=== PATIENT | male | born 1995 | race Caucasian/White ===

== ENCOUNTER 2019-06-30 05:22 | Emergency (ER) | payer OTHER ==
[2019-06-30] MEDS ORDERED: METOCLOPRAMIDE 5 MG/ML 2 ML VIAL IVP STA (05:39)
[2019-06-30] MEDS ORDERED: KETOROLAC 30 MG/ML 1 ML VIAL IVP STA (05:39)
[2019-06-30] MEDS ORDERED: SODIUM CHLORIDE 0.9% 1,000 ML IV ONE ×2 (05:39→07:54)
[2019-06-30] MEDS ORDERED: ACETAMINOPHEN TAB 325 MG TAB PO STA (05:45)
[2019-06-30] MEDS ORDERED: diphenhydrAMINE 50 MG/ML 1 ML VIAL IVP STA (05:45)
--- NOTE | 2019-06-30 05:49 | ED ---
Headache HPI - General Mode of arrival: EMS Limitations: no limitations - History of Present Illness Complaint: headache Onset/Timin -: days(s) Onset Description: gradual Location: left, frontal Severity: severe Quality: throbbing Consistency: constant Improves With: nothing Worsens With: light Context: occurred at rest Associated Symptoms: fever, vomiting, photophobia Treatments Prior to Arrival: none <Trevor Linares - Last Filed: 06/30/19 08:04> <Bakari Riojas - Last Filed: 06/30/19 10:44> - General Chief Complaint: Headache Stated Complaint: Headache Time Seen by Provider: 06/30/19 05:38 - History of Present Illness Initial Comments: 's patient is 24-year-old man who presents to be evaluated for headache. The patient states that it has been coming on over proximal past 2-1/2 days. He indicates the left frontal area. He states the pain as a throbbing, approximately 8 out of 10 in severity. He has noticed that it is worse with light. Patient states he also had some associated nausea and vomiting this morning. In addition over the past day or so he has noted having fever and feeling a little weaker than usual. In addition a is getting up this morning the felt unsteady and fell, but denies any injury. Patient denies neck stiffness or pain. Denies neurologic symptoms. (Trevor Linares) - Related Data Home Medications Medication Instructions Recorded Confirmed Venlafaxine HCl [Effexor] 75 mg PO BID 06/30/19 06/30/19 Allergies Allergy/AdvReac Type Severity Reaction Status Date / Time No Known Allergies Allergy Verified 06/30/19 06:48 Review of Systems ROS Other: All systems not noted in ROS Statement are negative. Constitutional: Reports: fever. Denies: chills, weakness Eyes: Reports: eye pain ((). Denies: vision change ENT: Denies: ear pain, throat pain, dental pain, hearing loss, congestion Respiratory: Denies: cough, dyspnea Cardiovascular: Denies: chest pain, palpitations, syncope Gastrointestinal: Reports: nausea, vomiting. Denies: abdominal pain, diarrhea Musculoskeletal: Denies: back pain Skin: Denies: rash Neurological: Reports: as per HPI, headache. Denies: weakness, numbness, paresthesias, confusion <Trevor Linares - Last Filed: 06/30/19 08:04> ROS Other: All systems not noted in ROS Statement are negative. <Bakari Riojas - Last Filed: 06/30/19 10:44> ROS Statement: Those systems with pertinent positive or pertinent negative responses have been documented in the HPI. Past Medical History Additional Past Medical History / Comment(s): depression History of Any Multi-Drug Resistant Organisms: None Reported Past Surgical History: No Surgical Hx Reported Past Psychological History: Depression Smoking Status: Never smoker Past Alcohol Use History: None Reported Past Drug Use History: None Reported <Trevor Linares - Last Filed: 06/30/19 08:04> General Exam Limitations: no limitations General appearance: alert, in no apparent distress Head exam: Present: atraumatic, normocephalic Eye exam: Present: normal appearance, PERRL, EOMI. Absent: scleral icterus, conjunctival injection, nystagmus ENT exam: Present: mucous membranes dry Neck exam: Present: normal inspection, full ROM. Absent: tenderness, meni ngismus Respiratory exam: Present: normal lung sounds bilaterally. Absent: respiratory distress, wheezes, rales, rhonchi, stridor Cardiovascular Exam: Present: regular rate, normal rhythm, normal heart sounds GI/Abdominal exam: Present: soft. Absent: tenderness Neurological exam: Present: alert, oriented X3, CN II-XII intact. Absent: motor sensory deficit Skin exam: Present: warm, dry, intact, normal color. Absent: rash <Trevor Linares - Last Filed: 06/30/19 08:04> Course Vital Signs 06/30/19 06/30/19 06/30/19 05:24 07:07 08:07 Temperature 100.9 F H 98.7 F Pulse Rate 90 86 73 Respiratory 18 16 16 Rate Blood Pressure 122/75 110/56 98/60 O2 Sat by Pulse 97 96 96 Oximetry 06/30/19 06/30/19 09:34 10:27 Temperature Pulse Rate 84 88 Respiratory 16 16 Rate Blood Pressure 107/60 125/68 O2 Sat by Pulse 96 99 Oximetry Procedures - Lumbar Puncture Consent Obtained: written consent Indication for Procedure: headache, fever work up Patient Position: sitting upright/leaning forward Skin Prep: 0.5% Chlorhexidine/Alcohol Local Anesthetic Used: Lidocaine 1% Spinal Needle Gauge: 20G Interspace Used: L3-L4 Fluid Initially Obtained: clear Complications: none Patient Tolerated Procedure: well <MilagrosTrevor - Last Filed: 06/30/19 08:04> Medical Decision Making - Lab Data Result diagrams: 06/30/19 05:29 06/30/19 05:29 <Trevor Linares - Last Filed: 06/30/19 08:04> - Lab Data Result diagrams: 06/30/19 05:29 06/30/19 05:29 <Bakari Riojas - Last Filed: 06/30/19 10:44> - Medical Decision Making History of signout to me by previous shift physician Dr. Mata. Briefly, patient is 24-year-old male presents with headache for multiple days. Patient also had a low-grade temperature on initial triage vitals. Lumbar puncture was performed by previous shift physician. Plan at sign out was to follow-up with lumbar puncture results. CSF studies were completed. CSF is otherwise normal except for 21 CSF nucleated cells. Patient is reevaluated at bedside from been stable medical condition. Discussed patient case with Dr. Mejias of neurology who doesn't recommend any intervention at this time. He does recommend that patient follow-up with primary care physician for results of CSF culture. Patient is well-appearing his mental for discharge. Symptoms are improved at time of discharge. (Bakari Riojas) - Lab Data Lab Results 06/30/19 06/30/19 06/30/19 Range/Units 05:29 05:29 07:42 WBC 11.9 H (3.8-10.6) k/uL RBC 5.36 (4.30-5.90) m/uL Hgb 15.8 (13.0-17.5) gm/dL Hct 45.6 (39.0-53.0) % MCV 85.1 (80.0-100.0) fL MCH 29.4 (25.0-35.0) pg MCHC 34.5 (31.0-37.0) g/dL RDW 15.3 (11.5-15.5) % Plt Count 195 (150-450) k/uL Neutrophils % 75 % Lymphocytes % 18 % Monocytes % 5 % Eosinophils % 1 % Basophils % 1 % Neutrophils # 8.9 H (1.3-7.7) k/uL Lymphocytes # 2.1 (1.0-4.8) k/uL Monocytes # 0.6 (0-1.0) k/uL Eosinophils # 0.1 (0-0.7) k/uL Basophils # 0.1 (0-0.2) k/uL Sodium 137 (137-145) mmol/L Potassium 4.2 (3.5-5.1) mmol/L Chloride 105 (98-107) mmol/L Carbon Dioxide 22 (22-30) mmol/L Anion Gap 10 mmol/L BUN 15 (9-20) mg/dL Creatinine 0.97 (0.66-1.25) mg/dL Est GFR (CKD-EPI)AfAm >90 (>60 ml/min/1.73 sqM) Est GFR (CKD-EPI)NonAf >90 (>60 ml/min/1.73 sqM) Glucose 98 (74-99) mg/dL Calcium 9.2 (8.4-10.2) mg/dL C-Reactive Protein 8.7 (<10.0) mg/L CSF Tube Number 2 CSF Volume 2.0 CSF Appearance Clear CSF Color Colorless CSF RBC 1 (0-10) u/L CSF Tot Nucleated Cells 21 H* (0-5) u/L CSF Mononuclear WBCs % 37 % CSF Polynuclear WBCs % 63 % CSF Glucose 53 (40-70) mg/dL CSF Total Protein 34 (12-60) mg/dL Disposition <Trevor Linares - Last Filed: 06/30/19 08:04> Is patient prescribed a controlled substance at d/c from ED?: No Time of Disposition: 10:44 <Bakari Riojas - Last Filed: 06/30/19 10:44> Clinical Impression: Headache Disposition: HOME SELF-CARE Instructions (If sedation given, give patient instructions): Acute Headache (ED) Referrals: Nonstaff,Physician [Primary Care Provider] - 1-2 days
[2019-06-30 05:53] LABS: Basophils # (A) 0.1 k/uL (0-0.2); Basophils % (A) 1 %; Eosinophils # (A) 0.1 k/uL (0-0.7); Eosinophils % (A) 1 %; HCT 45.6 % (39.0-53.0); HGB 15.8 gm/dL (13.0-17.5); Lymphocytes # (A) 2.1 k/uL (1.0-4.8); Lymphocytes % (A) 18 %; MCH 29.4 pg (25.0-35.0); MCHC 34.5 g/dL (31.0-37.0); MCV 85.1 fL (80.0-100.0); Mean Platelet Volume 6.5; Monocytes # (A) 0.6 k/uL (0-1.0); Monocytes % (A) 5 %; Neutrophils # (A) 8.9 k/uL (1.3-7.7); Neutrophils % (A) 75 %; Platelet Count 195 k/uL (150-450); RBC 5.36 m/uL (4.30-5.90); RDW 15.3 % (11.5-15.5); WBC 11.9 k/uL (3.8-10.6)
[2019-06-30 06:02] LABS: African American GFR (CKD) >90 (>60 ml/min/1.73 sqM); Anion Gap 10 mmol/L; Blood Urea Nitrogen 15 mg/dL (9-20); C Reactive Protein 8.7 mg/L (<10.0); Calcium 9.2 mg/dL (8.4-10.2); Carbon Dioxide 22 mmol/L (22-30); Chloride 105 mmol/L (98-107); Glucose 98 mg/dL (74-99); Potassium 4.2 mmol/L (3.5-5.1); Sodium 137 mmol/L (137-145)
--- NOTE | 2019-06-30 06:22 | CT ---
EXAM: CT Head Without Intravenous Contrast CLINICAL HISTORY: ITS.REASON CT Reason: Pain TECHNIQUE: Axial computed tomography images of the head/brain without intravenous contrast. CTDI is 49 mGy and DLP is 1103 mGy-cm. This CT exam was performed using one or more of the following dose reduction techniques: automated exposure control, adjustment of the mA and/or kV according to patient size, and/or use of iterative reconstruction technique. COMPARISON: No relevant prior studies available. FINDINGS: Brain: No hemorrhage, large hypodensity, or mass effect. Ventricles: No hydrocephalus. Bones/joints: Unremarkable. Soft tissues: Unremarkable. Sinuses: Unremarkable. Mastoid air cells: Clear. IMPRESSION: No acute hemorrhage, hydrocephalus, or mass effect.
[2019-06-30 07:09] VITALS: RESP 16; TEMP 98.7
[2019-06-30] MEDS ORDERED: LIDOCAINE 1% INJ 10MG/ML (20 ML MDV) SQ ONE (07:18)
[2019-06-30] MEDS ORDERED: HYDROmorphone 0.5 MG/0.5 ML SYRINGE IVP STA (07:54)
[2019-06-30 09:13] LABS: Glucose,CSF 53 mg/dL (40-70); Total Protein,CSF 34 mg/dL (12-60)
[2019-06-30 09:35] LABS: Appearance,CSF Clear; CSF Tube Number 2
[2019-06-30 09:37] LABS: Nucleated Cells, CSF 21 u/L (0-5); Red Blood Cell,CSF 1 u/L (0-10)
[2019-06-30 09:41] LABS: Diff, Total Cells Cnt, CSF 100; Mononuclear WBC,CSF 37 %; Polynuclear WBC,CSF 63 %
[2019-06-30 11:06] VITALS: BP 125/67; PULSE 83
== END 2019-06-30 11:05 | disposition home or self-care (01) ==
LOC: EC 05:22
DX: R51 Headache (principal); R11.2 Nausea with vomiting, unspecified; R50.9 Fever, unspecified; F32.9 Major depressive disorder, single episode, unspecified; Z79.899 Other long term (current) drug therapy; Z53.8 Procedure and treatment not carried out for other reasons; W19.XXXA Unspecified fall, initial encounter
CPT/HCPCS: 36415; 84157; 80048; 82945; 85025; 86140; 89050; 87070; 87205; 70450; 99284; 96374; 96375 ×2; 96361 ×2; 62270; J1200; J2765; J2001; J1170